=== PATIENT | male | born 1995 | race Caucasian/White ===

== ENCOUNTER 2016-12-03 04:59 | Emergency (ER) | payer SELFPAY ==
[~2016-12-03] VITALS: Ht 182.9 cm; Wt 79.4 kg
[2016-12-03 05:15] VITALS: BP 137/93
[2016-12-03] MEDS ORDERED: IBUPROFEN 800 MG TAB PO ONE (06:30)
== END 2016-12-03 06:49 | disposition home or self-care (01) ==
LOC: ER 04:59
DX: K04.7 Periapical abscess without sinus (principal); F17.210 Nicotine dependence, cigarettes, uncomplicated; Z88.6 Allergy status to analgesic agent